=== PATIENT | male | born 1975 | race African-American/Black ===

== ENCOUNTER 2018-01-27 14:10 | Emergency (ER) | payer MEDICARE, OTHER ==
[~2018-01-27] VITALS: Ht 182.9 cm; Wt 81.5 kg
[~2018-01-27 14:10] MED LIST: ALBU8HFA4 IH; ARIP15TA2 PO; CITA-106 PO; LISI-661 PO; QUET100T PO; QUET300T2 PO; TRAZ-219 PO; TRAZ-220 PO
[2018-01-27 14:33] VITALS: BP 151/75
[2018-01-27 15:38] LABS: BASOPHILS % (AUTO) 0.5 % (0.0-2.0); HEMATOCRIT 46.8 % (41-53); HEMOGLOBIN 15.4 g/dL (13.5-17.5); LYMPHOCYTES # (AUTO) 1.2 K/uL (1.0-4.8); MEAN CORPUSCULAR HEMOGLOBIN 30.8 pg (26.0-34.0); MEAN CORPUSCULAR HGB CONC 32.9 G/dL (31.0-37.0); MEAN CORPUSCULAR VOLUME 94 fL (80-100); MONOCYTES # (AUTO) 0.7 K/uL (0.1-1.0); MONOCYTES % (AUTO) 10.7 % (2.0-9.0); NEUTROPHILS # (AUTO) 4.6 K/uL (1.8-7.7); NEUTROPHILS % (AUTO) 68.8 % (40.0-70.0); PLATELET COUNT (AUTO) 161 K/uL (150-450)
[2018-01-27 15:55] LABS: ANION GAP 9 mmol/L (8-16); CALCIUM, TOTAL 8.7 mg/dL (8.8-10.5); CARBON DIOXIDE 29 mmol/L (22-29); CHLORIDE 108 mmol/L (98-107); CREATININE 1.18 mg/dL (0.60-1.30); GLOMERULAR FILTR. RATE CALC > 60 mL/min (>60); GLUCOSE,RANDOM 123 mg/dL (70-110); POTASSIUM 3.4 mmol/L (3.5-5.1); SODIUM SERUM 146 mmol/L (136-145); UREA NITROGEN, BLOOD 11 mg/dL (7-18)
[2018-01-27 16:00] LABS: VALPROIC ACID 97 mcg/mL (50-100)
== END 2018-01-27 18:30 | disposition home or self-care (01) ==
LOC: EMS 14:11
DX: R41.82 Altered mental status, unspecified (principal); T42.6X5A Adverse effect of other antiepileptic and sedative-hypnotic drugs, initial encounter; R62.50 Unspecified lack of expected normal physiological development in childhood; Z91.011 Allergy to milk products; Z91.018 Allergy to other foods; Z79.899 Other long term (current) drug therapy; Y92.89 Other specified places as the place of occurrence of the external cause
CPT/HCPCS: 99284

== ENCOUNTER 2018-02-23 11:32 | Emergency (ER) | payer MEDICARE, OTHER ==
[~2018-02-23] VITALS: Ht 177.8 cm; Wt 79.5 kg
[2018-02-23] MEDS ORDERED: DIVA500T52 PO (12:26)
[2018-02-23 13:03] VITALS: BP 127/92
[2018-02-23] MEDS ORDERED: IBUPROFEN 600 MG TABLET PO ONE (14:00)
== END 2018-02-23 14:21 | disposition home or self-care (01) ==
LOC: EMS 11:32
DX: M79.662 Pain in left lower leg (principal); Z91.011 Allergy to milk products; Z91.018 Allergy to other foods; Z79.899 Other long term (current) drug therapy